=== PATIENT | male | born 1955 | race Caucasian/White ===

== ENCOUNTER → 2023-11-13 08:08 | Outpatient (REF) | payer OTHER, MEDICARE, SELFPAY ==
[2023-11-13 09:45] LABS: % Basophils 0.4 % (0-2); % Immature Granulocytes 0.3 % (0-0.5); % Monocytes 7.6 % (1.7-9.3); % Neutrophils 60.7 % (42.2-75.2); Absolute Eosinophils 0.2 10^3/uL (0-0.7); Absolute Lymphocytes 2.1 10^3/uL (1.2-3.4); Absolute Monocytes 0.6 10^3/uL (0.1-0.6); Absolute Neutrophils 4.6 10^3/uL (1.4-6.5); Hematocrit 48.2 % (39.0-52.0); Hemoglobin 16.1 g/dL (13.0-18.0); Mean Corp Hgb Conc. 33.4 g/dL (33.0-37.0); Mean Corpuscular Hgb 28.9 pg (27.0-31.0); Mean Corpuscular Volume 86.4 fL (80.0-94.0); Mean Platelet Volume 10.2 fL (7.4-10.4); Nucleated Red Blood Cells % 0 % (-); Platelet Count 275 10^3/uL (130-400); Red Blood Cell Count 5.58 10^6/uL (4.70-6.10); White Blood Cell Count 7.6 10^3/uL (4.8-10.8)
[2023-11-13 11:39] LABS: ALT (SGPT) 24 U/L (0-50); AST (SGOT) 30 U/L (17-59); Albumin 4.5 g/dl (3.5-5.0); Alkaline Phosphatase 78 U/L (38-126); Blood Urea Nitrogen 21 mg/dl (9-20); Calcium 9.5 mg/dl (8.4-10.2); Carbon Dioxide 28 mmol/L (22-30); Chloride 100 mmol/L (98-107); Glucose 95 mg/dl (70-99); HDL Cholesterol 65 mg/dl; LDL Cholesterol, Calculated 108 mg/dl; Potassium 4.3 mmol/L (3.5-5.1); Sodium 141 mmol/L (135-145); Total Bilirubin 1.2 mg/dl (0.2-1.3); Total Cholesterol 198 mg/dl (50-199); Total Protein 7.2 g/dl (6.3-8.2); Triglyceride 127 mg/dl (10-149); Very Low Density Lipoprotein 25 mg/dl (0-30); eGFR > 60.00
[2023-11-13 11:51] LABS: Free T4 1.01 ng/dl (0.78-2.19)
[2023-11-13 12:05] LABS: PSA, Total - Screen 1.39 ng/ml (0.0-4.0); TSH 3.48 uIU/ml (0.47-4.68)
== END ==
LOC: REG 08:08
PROVIDERS: ATTENDING PHYSICIAN Physician Assistant; FAMILY PHYSICIAN Internal Medicine
DX: I10 Essential (primary) hypertension (principal); E66.01 Morbid (severe) obesity due to excess calories; Z12.5 Encounter for screening for malignant neoplasm of prostate; E78.2 Mixed hyperlipidemia; Z85.828 Personal history of other malignant neoplasm of skin; R79.89 Other specified abnormal findings of blood chemistry
CPT/HCPCS: 36415; 80053; 80061; 84439; 84443; 85025; G0103

== ENCOUNTER → 2023-12-04 10:27 | Outpatient (REF) | payer OTHER, MEDICARE, SELFPAY | LOC: RCS 10:27 | PROVIDERS: ATTENDING PHYSICIAN Orthopaedic Surgery Hand Surgery; FAMILY PHYSICIAN Internal Medicine | DX: Z01.818 Encounter for other preprocedural examination (principal) | CPT/HCPCS: 93005 ==

== ENCOUNTER 2024-03-09 13:55 | Outpatient (RCR) | payer OTHER, MEDICARE, SELFPAY | END 2024-03-09 23:59 | disposition home or self-care (01) | LOC: ROT 13:55 | PROVIDERS: ATTENDING PHYSICIAN Orthopaedic Surgery Hand Surgery; FAMILY PHYSICIAN Internal Medicine | DX: M18.11 Unilateral primary osteoarthritis of first carpometacarpal joint, right hand (principal); M65.4 Radial styloid tenosynovitis [de Quervain]; Z73.6 Limitation of activities due to disability | CPT/HCPCS: 97018; 97110; 97140; 97166; 97535 ==

== ENCOUNTER 2024-04-09 13:53 | Outpatient (RCR) | payer OTHER, MEDICARE, SELFPAY | END 2024-04-09 23:59 | disposition home or self-care (01) | LOC: ROT 13:53 | PROVIDERS: ATTENDING PHYSICIAN Orthopaedic Surgery Hand Surgery; FAMILY PHYSICIAN Internal Medicine | DX: M18.11 Unilateral primary osteoarthritis of first carpometacarpal joint, right hand (principal); M65.4 Radial styloid tenosynovitis [de Quervain]; Z73.6 Limitation of activities due to disability | CPT/HCPCS: 97018; 97110; 97140 ==

== ENCOUNTER 2024-05-03 06:55 | Outpatient (RCR) | payer OTHER, MEDICARE, SELFPAY | END 2024-05-03 23:59 | disposition home or self-care (01) | LOC: ROT 06:55 | PROVIDERS: ATTENDING PHYSICIAN Orthopaedic Surgery Hand Surgery; FAMILY PHYSICIAN Internal Medicine | DX: M18.11 Unilateral primary osteoarthritis of first carpometacarpal joint, right hand (principal); Z47.89 Encounter for other orthopedic aftercare (principal); M65.4 Radial styloid tenosynovitis [de Quervain]; Z73.6 Limitation of activities due to disability | CPT/HCPCS: 97018; 97022; 97110; 97140 ==

== ENCOUNTER 2024-05-27 12:02 | Outpatient (RCR) | payer OTHER, MEDICARE, SELFPAY | END 2024-05-27 23:59 | disposition home or self-care (01) | LOC: ROT 12:02 | PROVIDERS: ATTENDING PHYSICIAN Orthopaedic Surgery Hand Surgery; FAMILY PHYSICIAN Internal Medicine | DX: Z47.89 Encounter for other orthopedic aftercare (principal); M18.11 Unilateral primary osteoarthritis of first carpometacarpal joint, right hand; M65.4 Radial styloid tenosynovitis [de Quervain]; Z73.6 Limitation of activities due to disability | CPT/HCPCS: 97018; 97110; 97140; 97535 ==

== ENCOUNTER 2024-06-21 09:56 | Outpatient (RCR) | payer OTHER, MEDICARE, SELFPAY | END 2024-06-21 23:59 | disposition home or self-care (01) | LOC: ROT 09:56 | PROVIDERS: ATTENDING PHYSICIAN Orthopaedic Surgery Hand Surgery; FAMILY PHYSICIAN Internal Medicine | DX: Z47.89 Encounter for other orthopedic aftercare (principal); M18.11 Unilateral primary osteoarthritis of first carpometacarpal joint, right hand; M65.4 Radial styloid tenosynovitis [de Quervain]; Z73.6 Limitation of activities due to disability | CPT/HCPCS: 97018; 97110; 97140 ==

== ENCOUNTER 2024-06-23 19:53 | Emergency (ER) | payer OTHER, MEDICARE, SELFPAY ==
[2024-06-23 19:53] VITALS: BMI 29.3
[2024-06-23 19:57] VITALS: BP 175/94
[2024-06-23 20:00] VITALS: BP 111/75
[2024-06-23 20:13] LABS: % Basophils 0.5 % (0-2); % Eosinophils 1.8 % (0-6); % Immature Granulocytes 0.3 % (0-0.5); % Lymphocytes 29.5 % (20.5-51.1); % Monocytes 8.2 % (1.7-9.3); % Neutrophils 59.7 % (42.2-75.2); Absolute Basophils 0.1 10^3/uL (0-0.2); Absolute Eosinophils 0.2 10^3/uL (0-0.7); Absolute Lymphocytes 2.9 10^3/uL (1.2-3.4); Absolute Monocytes 0.8 10^3/uL (0.1-0.6); Absolute Neutrophils 5.8 10^3/uL (1.4-6.5); Hemoglobin 16.1 g/dL (13.0-18.0); Mean Corp Hgb Conc. 33.5 g/dL (33.0-37.0); Mean Corpuscular Hgb 29.4 pg (27.0-31.0); Mean Corpuscular Volume 87.8 fL (80.0-94.0); Mean Platelet Volume 9.8 fL (7.4-10.4); Nucleated Red Blood Cells % 0 % (-); Platelet Count 274 10^3/uL (130-400); Red Blood Cell Count 5.47 10^6/uL (4.70-6.10); White Blood Cell Count 9.7 10^3/uL (4.8-10.8)
[2024-06-23 20:30] LABS: ALT (SGPT) 31 U/L (0-50); AST (SGOT) 29 U/L (17-59); Albumin 4.5 g/dl (3.5-5.0); Alkaline Phosphatase 80 U/L (38-126); Blood Urea Nitrogen 21 mg/dl (9-20); Calcium 9.5 mg/dl (8.4-10.2); Carbon Dioxide 30 mmol/L (22-30); Chloride 103 mmol/L (98-107); Glucose 133 mg/dl (70-99); Potassium 4.5 mmol/L (3.5-5.1); Sodium 141 mmol/L (135-145); Total Bilirubin 0.7 mg/dl (0.2-1.3); Total Protein 7.1 g/dl (6.3-8.2); eGFR > 60.00
[2024-06-23 20:38] LABS: APTT 30.2 Sec (23.4-35.0)
[2024-06-23 22:54] VITALS: BP 110/75
[2024-06-23 23:00] VITALS: BP 111/75
[2024-06-24] VITALS: BP 108/84
--- NOTE | 2024-06-24 01:33 | ED.GENMED ---
History of Present Illness
General
Chief Complaint: DVT/Possible Blood Clot
Source: patient and spouse
Exam Limitations: none
Time Seen by Provider: 06/23/24 23:04
Nursing documentation reviewed up to this point in time: agreed with
History of Present Illness
History of Present Illness:
69-year-old male patient with history of hypertension and anxiety presenting to the emergency department today with concerns of left thigh pain and also some tingling noticed to the toes starting today mainly. Has had some intermittent similar
symptoms in the past. Denies any specific injuries. Denies any chest pain shortness of breath history of blood clots recent trauma surgery immobilization.
Past History
Past History
ED Past Medical History: HTN
ED Past Surgical History: Appendectomy, Cholecystectomy and Orthopedic
Social History
Tobacco: Non-smoker
Review of Systems
Review of Systems
Allergies reviewed?: Yes
All Other Systems: ROS reviewed and negative except as documented in HPI and ROS
Phy Exam
Physical Exam
Physical Exam:
GENERAL: Alert , in no apparent distress
EYE: pupils equal and reactive
NECK: Supple, no significant adenopathy.
ENT: o/p clr, mmm.
CARDIAC: Regular rate and rhythm .
LUNGS: Clear breath sounds bilaterally, no acute respiratory distress, no wheezes/rales/rhonchi
ABDOMEN: Soft, without focal tenderness, no r/g, no cvat
NEUROLOGICAL: Alert and oriented, no focal neuro deficits
SKIN: Warm and dry, skin intact.
MUSCULOSKELETAL: No edema, well perfused.
PSYCH: Normal and appropriate interaction.
Course
Orders/Labs/Results
Orders:
Orders
06/23/24 20:04
CBC/With Diff [Complete Blood Count/With Diff] Urgent
Comprehensive Metabolic Panel Urgent
PTT Urgent
06/24/24 00:00
US Periph Venous LOWER Ext LT Urgent
Reason For Exam: leg pain swelling
Abnormal Lab Results
06/23/24
20:04
Absolute Monos (auto) 0.8 H 10^3/uL
(0.1-0.6)
BUN 21 H mg/dl
(9-20)
Glucose 133 H mg/dl
(70-99)
06/23/24 20:04
06/23/24 20:04
Vital Signs
Initial and Last Documented VS:
Initial Vital Signs
Temp Pulse Resp BP Pulse Ox
98.3 F 75 20 175/94 98
06/23/24 19:57 06/23/24 19:57 06/23/24 19:57 06/23/24 19:57 06/23/24 19:57
Last Documented Vital Signs
Temp Pulse Resp BP Pulse Ox
98.3 F 92 20 108/84 92
06/23/24 19:57 06/23/24 20:00 06/23/24 20:00 06/24/24 00:00 06/24/24 00:45
MDM/Problems Addressed
MDM/Problems Addressed:
69-year-old male presenting to the emergency room with concerns of left thigh pain with some tingling to the left toes. Initial blood pressure elevated otherwise vital signs are normal. Patient with no visible abnormalities to the left lower
extremity no redness or warmth good range of motion. Normal general sensation normal distal pulses. Ultrasound without evidence of DVT. Labs unremarkable. No signs of emergent process stable for outpatient follow-up. Return precautions given.
*Critical Care Note
Total Time (30-74mins, 75-104mins- exclusive of procedures): Not Applicable
ED Attending Note
-
Portions of this chart may have been created with voice recognition software.� Occasional wrong word or��sound alike� substitutions may have occurred due to the inherent limitations of voice recognition software.
Discharge Plan
Departure
Patient Disposition: Home (Routine Discharge)
Date of Disposition: 06/24/24
Time of Disposition: 01:43
Patient with high blood pressure during this ER visit?: No
Condition: Good
Covid-19: Not Applicable
Discharge Problem:
Acute leg pain
Prescriptions:
No Action
buspirone 10 MG tablet
10 mg PO BID
lisinopril-hydrochlorothiazide 1 EACH tablet
1 ea PO DAILY
Referrals:
Fracisco Hinkle MD [Family Provider] -
Activity Restrictions/Additional Instructions:
You came to the emergency department today with concerns of leg pain. Please follow closely with your primary care doctor. Here your workup was reassuring. No evidence of DVT on ultrasound. Return for any worsening, new or concerning symptoms.
Interventions
Interventions:
*General Assessment Last Done: 06/23/24 19:57
ED- Cardiac Assessment Last Done: 06/24/24 01:21
ED- Pulmonary Assessment Last Done: 06/24/24 01:21
ED-Peripheral Vascular Assessment Last Done: 06/24/24 01:21
ED-Skin Assessment Last Done: 06/24/24 01:21
Discharge Date and Time
Print Language: [id number]
== END 2024-06-24 01:59 | disposition home or self-care (01) ==
LOC: EMR 19:53
PROVIDERS: Emergency Medicine; EMERGENCY PHYSICIAN Emergency Medicine; FAMILY PHYSICIAN Internal Medicine
DX: M79.605 Pain in left leg (principal); I10 Essential (primary) hypertension; F41.9 Anxiety disorder, unspecified; Z90.49 Acquired absence of other specified parts of digestive tract
CPT/HCPCS: 99284; 80053; 85025; 85730; 93971

== ENCOUNTER → 2024-07-30 07:11 | Outpatient (REF) | payer OTHER, MEDICARE, SELFPAY | LOC: RAD 07:11 | PROVIDERS: ATTENDING PHYSICIAN Internal Medicine | DX: M54.40 Lumbago with sciatica, unspecified side (principal) | CPT/HCPCS: 72110 ==